=== PATIENT | female | born 1995 | race Caucasian/White ===

== ENCOUNTER 2017-01-11 | Inpatient (IN) | payer OTHER ==
[~2017-01-11] VITALS: Ht 154.9 cm; Wt 51.3 kg
[~2017-01-11] MED LIST: BACTRIM DS TABL1 TA1 PO; CIPRO PO; PYRIDIUM100 MG PO; URISPAS100 M1 PO; ZOFRAN ODT4 MG PO
--- NOTE | ~2017-01-11 | PN ---
Unit #: [id number] #: [id number] Patient: GIOVANY MAK [id number] [facility] [address] [place] [address] [id number] MR#: [id number] NAME: GIOVANY MAK ROOM: P176 Age: 21 Sex: F Admission Date: 01/11/2017 : 1995 Attending Physician: Jacob Lee M.D. Admitting Physician: Jacob Lee M.D. Primary Care Physician: [facility] PROGRESS NOTES DATE OF SERVICE: 01/13/2017 SUBJECTIVE Ms. Mak is a 21-year-old white female with mood disorder and substance abuse, who was seen today and chart was reviewed, and case was discussed with the staff. She has been anxious, withdrawn, depressed, and rather seclusive to herself. Meanwhile, she has been cooperative with treatment recommendations and has been taking the medications and tolerating them fairly well with no reported side effects. MENTAL STATUS EXAMINATION Young white female who was casually dressed with fair personal hygiene, appears to be in no acute distress or discomfort. She can awake and alert on interaction with intact orientation. Her mood was anxious with a congruent affect. Her speech was slow and restricted in content. She denies any suicidal or homicidal ideations, and also denies any auditory or visual hallucinations. Her insight and judgment remain slightly impaired. TREATMENT PLAN 1. We will continue on her current medications and treatment protocol. We will monitor her response to medications and make further adjustments as needed. 2. We will continue to follow up. Dictated by... Lydia Heath/renée TD: 01/13/2017 16:13 JOB #: [id number] Unit #: [id number] #: [id number] Patient: GIOVANY MAK PROGRESS NOTES Page 1 of 1 X Jacob Lee MD PROGRESS NOTE
--- NOTE | ~2017-01-11 | HP ---
Unit #: [id number] #: [id number] Patient: GIOVANY LOTT [id number] [place] [address] [id number] I MR#: [id number] NAME: GIOVANY LOTT ROOM: P176 Age: 21 Sex: F Admission Date: 01/11/2017 : 1995 Attending Physician: Jacob Lee M.D. Admitting Physician: Jacob Lee M.D. Primary Care Physician: [facility] HISTORY AND PHYSICAL HISTORY AND PHYSICAL COMPLETED 01/11/2017 HISTORY OF PRESENT ILLNESS Giovany is a 21-year-old female, admitted on 01/11/2017 to [facility], for detox from meth. PAST MEDICAL HISTORY None. PAST SURGICAL HISTORY None. SOCIAL HISTORY She smokes one pack of cigarettes daily, denies alcohol use, does report daily use of methamphetamines. She is currently single and lives with her son and her son's father. FAMILY HISTORY Noncontributory. REVIEW OF SYSTEMS CONSTITUTIONAL: No fever or chills. HEENT: Denies any sore throat, ear pain or runny nose. CARDIOVASCULAR: Denies chest pain, irregular heart rhythm or palpitations. CHEST: Denies shortness of breath or cough. No hemoptysis. GASTROINTESTINAL: Denies nausea, vomiting, diarrhea or chronic constipation. ENDOCRINE: Denies history of increased thirst or urination. No recent significant weight loss or gain. GENITOURINARY: Denies dysuria, frequency, or hematuria. SKIN: Denies any rashes. HEMATOLOGIC: Denies history of increased bleeding or bruising. MUSCULOSKELETAL: Denies any hot, swollen joints. No generalized muscle pain. NEUROLOGIC: Denies problems with vision or speech. No frequent, severe headaches. No numbness, tingling or weakness in any extremities. Denies loss of bladder or bowel control. CURRENT MEDICATIONS None. ALLERGIES Unit #: [id number] #: [id number] Patient: GIOVANY LOTT None. PHYSICAL EXAMINATION GENERAL: Alert, oriented, no acute distress. VITAL SIGNS: Blood pressure 111/71, heart rate 94, respirations 16, temperature 98.6. HEIGHT: 5 feet 1 inch. WEIGHT: 113 pounds. SKIN: Warm and dry without rash or lesion. HEENT: Normocephalic. TMs not viewed. Oral and nasal passages clear. Conjunctivae clear. PERRLA. EOMs intact. NECK: Supple without lymphadenopathy or thyromegaly. HEART: Regular rate and rhythm without murmur. LUNGS: Clear. ABDOMEN: Soft, nontender. : Not done. EXTREMITIES: No evidence of cyanosis, clubbing or edema. Moves all without focal deficit. NEUROLOGICAL: Grossly within normal limits. Cranial Nerves: II: Visual worthy are intact. III, IV AND : Extraocular movements are intact. Pupils are equal, round and reactive to light. V: Facial sensation is grossly normal. VII: Facial movements and expression are normal. VIII: Auditory acuity grossly intact. IX, X: Uvula is midline. Phonation is normal. XI: Patient shrugs shoulders and turns head normally. XII: Tongue protrudes in the midline. Sensory and Motor Function: Sensory and motor sensation is grossly normal. Motor: moves all extremities well. Coordination: Gait is normal. Deep Tendon Reflexes: Intact. IMPRESSION Psychiatric admission. RECOMMENDATIONS Psychiatric, per psychiatrist. MEDICAL No contraindications to participating in facility's activities. MEDICAL PROGNOSIS Good. MEDICAL CONDITION Stable. Dictated by... Remington Reyes TD: 01/12/2017 05:59 JOB #: [id number] Unit #: [id number] #: [id number] Patient: GIOVANY LOTT HISTORY AND PHYSICAL Page 1 of 1 X SUSIE MORSE APRN X HISTORY AND PHYSICAL
--- NOTE | ~2017-01-11 | CO ---
Unit #: [id number] #: [id number] Patient: GIOVANY LOTT [id number] [place] [address] [id number] MR#: [id number] NAME: GIOVANY LOTT ROOM: 76 Age: 21 Sex: F Admission Date: 01/11/2017 : 1995 Attending Physician: Jacob Lee M.D. Primary Care Physician: [facility] Consultation Date: 01/11/2017 CONSULTATION REPORT HISTORY OF PRESENT ILLNESS Giovany reports that she has a history of STDs. She was diagnosed with chlamydia and Trichomonas several months ago and believes that she has the same again. She reports yellowish green vaginal discharge with thickness and an odor. She also has had vaginal itching for the past week. No abdominal pain. No other complaints. PHYSICAL EXAMINATION CARDIAC: Regular rate and rhythm. No murmurs, gallops, or rubs. RESPIRATORY: Clear to auscultation bilaterally. ASSESSMENT AND PLAN Vaginal odor and itching. We will obtain urine for gonorrhea, chlamydia and Trichomonas. Please notify once results are available. Dictated by... Remington Reyes/renée TD: 01/12/2017 00:43 JOB #: [id number] CONSULTATION REPORT Page 1 of 1 X SUSIE MORSE APRN X CONSULTATION REPORT
--- NOTE | ~2017-01-11 | PN ---
Unit #: [id number] #: [id number] Patient: GIOVANY MAK [id number] [facility] [address] [place] [address] [id number] I MR#: [id number] NAME: GIOVANY MAK ROOM: P176 Age: 21 Sex: F Admission Date: 01/11/2017 : 1995 Attending Physician: Jacob Lee M.D. Admitting Physician: Jacob Lee M.D. Primary Care Physician: [facility] PROGRESS NOTES DATE 01/12/2017 DISCUSSION Ms. Mak is a 21-year-old white female with substance abuse and mood disorder who was seen today and chart was reviewed and case was discussed with the staff. She has been exhibiting very bizarre behavior as she is refusing to talk and today she actually was laying in the bed awake with eyes open but still would not make eye contact or answer any questions and at best, she slightly shook her head stating that she has nothing to ask and as such has been very seclusive, isolative with blunted affect and minimal interaction and poor eye contact. However, no agitation or aggression has been noted. MENTAL STATUS EXAMINATION Young white female who was casually dressed with fair personal hygiene and appears to be in no acute distress or discomfort. She was awake and alert with impaired attention and concentration. Her mood was anxious with congruent affect. Her speech is slow and restricted in content. Her thought processes were disorganized with some looseness of associations and flight of ideas. Her insight and judgement remain significantly impaired. TREATMENT PLAN 1. Will continue on current medications and treatment protocol. Will monitor her response to the medications and make further adjustments as needed. 2. Will continue to follow up. Dictated by... Lydia Heath/dianne TD: 01/12/2017 23:10 JOB #: [id number] Unit #: [id number] #: [id number] Patient: GIOVANY MAK PROGRESS NOTES Page 1 of 1 X Jacob Lee MD X PROGRESS NOTE
--- NOTE | ~2017-01-11 | CO ---
Unit #: [id number] #: [id number] Patient: GIOVANY LOTT [id number] [facility] [address] [place] [address] [id number] Felice MR#: [id number] NAME: GIOVANY LOTT ROOM: [facility] Age: 21 Sex: F Admission Date: 01/11/2017 : 1995 Attending Physician: Jacob Lee M.D. Primary Care Physician: [facility] CONSULTATION REPORT REASON FOR CONSULT Patient complaint of abnormal labs, vaginal discharge. SUBJECTIVE "I had Trichomonas and Chlamydia in April and it is the same discharge, the same foul smelling yellow greenish discharge that I had then, so I think it has recurred." OBJECTIVE Vital signs within normal limits. Noted abnormal urine with positive 3+ leuko esterase, 1+ blood which patient states she was on her period at the time, some WBCs. ASSESSMENT Likely recurrence of Chlamydia and Trichomonas. PLAN Will give azithromycin 1 gram as a single dose today and metronidazole 2 grams as a single dose today as well. Dictated by... Remington Rocha/dianne TD: 01/13/2017 17:44 JOB #: [id number] CONSULTATION REPORT Page 1 of 1 X Aminah Cabrera APR X CONSULTATION REPORT
--- NOTE | ~2017-01-11 | PN ---
Unit #: [id number] #: [id number] Patient: GIOVANY MAK [id number] [facility] [address] [place] [address] [id number] I MR#: [id number] NAME: GIOVANY MAK ROOM: 76 Age: 21 Sex: F Admission Date: 01/11/2017 : 1995 Attending Physician: Jacob Lee M.D. Admitting Physician: Jacob Lee M.D. Primary Care Physician: [facility] PROGRESS NOTES DATE January 15, 2017 DISCUSSION Ms. Mak is a 21-year-old white female, who was seen today and chart was reviewed and the case was discussed with the staff. The patient has been anxious, withdrawn, and rather seclusive to herself. Meanwhile, she has been cooperative with the treatment recommendations and has been taking the medications and tolerating them fairly well with no reported side effects. MENTAL STATUS EXAMINATION Young white female, who was casually dressed with fair personal hygiene and appears to be in no acute distress or discomfort. She was awake and alert with impaired attention and concentration. Her mood is anxious with a congruent affect. Her speech is slow and goal-directed. She denies any suicidal or homicidal ideations, and also denies any auditory or visual hallucinations. Her insight and judgment remain slightly impaired. TREATMENT PLAN 1. We will continue her on her current medications and treatment protocol, and will monitor her response to the medications, and make further adjustments as needed. 2. We will continue to followup. Dictated by... Lydia Heath/tunde TD: 01/16/2017 07:30 JOB #: [id number] Unit #: [id number] #: [id number] Patient: GIOVANY MAK [facility] PROGRESS NOTES Page 1 of 1 X Jacob Lee MD PROGRESS NOTE
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
--- NOTE | ~2017-01-11 | PN ---
Unit #: [id number] #: [id number] Patient: GIOVANY MAK [id number] [facility] [address] [place] [address] [id number] I MR#: [id number] NAME: GIOVANY MAK ROOM: 76 Age: 21 Sex: F Admission Date: 01/11/2017 : 1995 Attending Physician: Jacob Lee M.D. Admitting Physician: Jacob Lee M.D. Primary Care Physician: [facility] PROGRESS NOTES DATE 01/14/2017. DISCUSSION Ms. Mak is a 21-year-old white female who was seen today and chart reviewed. Her case was discussed with the staff. She has been anxious and withdrawn. She has not shown any agitation. She has been cooperative with treatment recommendations. She has been taking her medication and tolerating them fairly well with no reported side effects. MENTAL STATUS EXAMINATION Young white female who was casually dressed with fair personal hygiene. She appears to be in no acute distress or discomfort. The patient was awake and alert on interaction with intact orientation. Her mood was anxious with a congruent affect. The patient denies any suicidal or homicidal ideations, and also denies any auditory or visual hallucinations. Her insight and judgment remain slightly impaired. TREATMENT PLAN 1. We will continue on her current medications and treatment protocol. We will monitor her response to medications and make further adjustments as needed. 2. We will continue to follow up. Dictated by... Lydia Heath/gz TD: 01/15/2017 14:13 JOB #: [id number] Unit #: [id number] #: [id number] Patient: GIOVANY MAK [facility] PROGRESS NOTES Page 1 of 1 X Jacob Lee MD PROGRESS NOTE
--- NOTE | ~2017-01-11 | DS ---
Unit #: [id number] #: [id number] Patient: GIOVANY MAK [id number] [facility] [address] [place] [address] [id number] I MR#: [id number] NAME: GIOVANY MAK ROOM: P176 Age: 21 Sex: F Admission Date: 01/11/2017 : 1995 Discharge Date: 01/16/2017 Attending Physician: Jacob Lee M.D. Primary Care Physician: [facility] DISCHARGE SUMMARY IDENTIFYING DATA Ms. Mak is a 21-year-old single white female, who is a resident of [place], [place], and was self-referred to the hospital on a voluntary basis. DISCHARGE DIAGNOSES Psychiatric: Major depressive disorder, recurrent, moderate, without psychotic features; methamphetamine dependence, moderate; and opioid abuse, moderate. Medical: None. Stressors: Mild psychosocial stressors. HISTORY OF PRESENT ILLNESS Please see initial psychiatric evaluation for details. PAST PSYCHIATRIC HISTORY Please see initial psychiatric evaluation for details. PAST MEDICAL HISTORY Please see initial psychiatric evaluation for details. HOSPITAL COURSE The [facility] and was oriented to the hospital environment. Routine p.r.n. medications were initiated, and she was started back on her home medications and detox protocol was initiated and she was also started on Effexor as an antidepressant and was closely monitored. She was taking the medications regularly and was tolerating them fairly well and was able to show a decent and therapeutic response with improvement in depression and anxiety and was denying any suicidal ideations and was not seen to be a danger to self or anyone else and was willing to continue treatment on an outpatient basis, and as such, it was decided that she will be discharged home and will continue treatment on an outpatient basis. DISCHARGE MEDICATION Effexor XR 75 mg a day for depression. DISCHARGE CONDITION Stable. PROGNOSIS Fair. Dictated by... Unit #: [id number] #: [id number] Patient: GIOVANY MAK Lydia Heath/renée TD: 01/16/2017 19:01 JOB #: [id number] DISCHARGE SUMMARY Page 1 of 1 X Jacob Lee MD DISCHARGE SUMMARY
[2017-01-12 09:40] LABS: BASOPHIL% 0.5 % (0-2.5); EOSINOPHIL# 0.1 X10e3 (0-0.7); EOSINOPHIL% 1.4 % (0.0-7.0); HEMATOCRIT 37.8 % (35.0-45.0); HEMOGLOBIN 12.4 gm/dL (12.0-16.0); LYMPHOCYTE% 48.8 % (17.0-45.0); MEAN CELL VOLUME 91.8 FL (83-96); MEAN CORPUSCULAR HEMOGLOBIN 30.2 PG (28-34); MEAN CORPUSCULAR HGB CONC 32.8 g/dL (30-36); MONOCYTE# 0.8 X10e3 (0-1.0); MONOCYTE% 10.2 % (3.0-12.0); NEUTROPHIL# 3.2 X10e3 (1.5-7.1); NEUTROPHIL% 39.1 % (40-75); PLATELET COUNT 239 X10e3 (140-420); RED BLOOD COUNT 4.12 X10e (3.90-5.30); RED CELL DISTRIBUTION WIDTH 13.2 % (11.0-15.5); WHITE BLOOD COUNT 8.2 X10e3 (4.0-10.5)
[2017-01-12 09:54] LABS: DIFF IND NO
[2017-01-12 09:57] LABS: URINE APPEARANCE CLOUDY; URINE BILIRUBIN NEG (NEG); URINE BLOOD 1+ (NEG); URINE COLOR YELLOW; URINE GLUCOSE NORM (NORM); URINE KETONE NEG (NEG); URINE LEUKOCYTE ESTERASE 3+ (NEG); URINE NITRATE NEG (NEG); URINE PROTEIN NEG (NEG); URINE SPECIFIC GRAVITY 1.025 (1.003-1.035); URINE UROBILINOGEN NORM (NORM)
[2017-01-12 10:17] LABS: URINE BACTERIA AUWI NEG (NEGATIVE); URINE SQUAMOUS EPITHELIAL CELL FEW /[HPF]
[2017-01-12 10:18] LABS: URINE AMORPHOUS SEDIMENT AMORP URATES; URINE CRYSTALS CALCIUM OXALATE /[HPF]
[2017-01-12 10:31] LABS: ALBUMIN SERUM 3.4 g/dL (3.5-5.0); BILIRUBIN,TOTAL 0.4 mg/dL (0.2-2.0); CALCIUM SERUM 8.4 mg/dL (8.4-10.2); CREATININE SERUM 0.6 mg/dL (0.6-1.4); GLOM FILT RATE Estimated 129.4 mL/min (>60); POTASSIUM 3.8 mmol/L (3.5-5.1)
[2017-01-12 10:40] LABS: AMPHETAMINE POS (NEG); BARBITURATES NEG (NEG); BENZODIAZEPINES NEG (NEG); COCAINE NEG (NEG); MARIJUANA NEG (NEG); OPIATES POS (NEG); TRICYCLIC ANTIDEPRESSANTS NEG (NEG); U METHADONE NEG (NEG)
[2017-01-16 15:28] LABS: CHLAMYDIA TRACH Detected (Not Detected); N GONOR Not Detected (Not Detected)
== END 2017-01-16 11:05 | DRG 885 ==
LOC: P1E 04:24
PROVIDERS: Nurse Practitioner Family; Psychiatry & Neurology Psychiatry
PROC: HZ2ZZZZ Detoxification Services for Substance Abuse Treatment (ICD-10-PCS; principal; 2017-01-11)
DX: F33.1 Major depressive disorder, recurrent, moderate (principal); F15.20 Other stimulant dependence, uncomplicated; F11.10 Opioid abuse, uncomplicated; F17.210 Nicotine dependence, cigarettes, uncomplicated; A56.02 Chlamydial vulvovaginitis; A59.01 Trichomonal vulvovaginitis
CPT/HCPCS: 80053; 80307; 81003; 84703; 85025; 87491; 87591

== ENCOUNTER 2017-02-14 22:30 | Emergency (ER) | payer OTHER ==
[2017-02-14 23:07] LABS: URINE SOURCE CLEAN CATCH
[2017-02-14 23:11] LABS: URINE APPEARANCE CLOUDY; URINE BLOOD 3+ (NEG); URINE COLOR DK YELLOW; URINE GLUCOSE NEG (NEG); URINE KETONE NEG (NEG); URINE LEUKOCYTE ESTERASE 2+ (NEG); URINE NITRATE NEG (NEG); URINE PH 6.5 (5-8); URINE PROTEIN 2+ (NEG); URINE SPECIFIC GRAVITY 1.024 (1.003-1.035)
[2017-02-14 23:14] LABS: CULTURE INDICATED? YES; URBCS1 AUWI INNUM /[HPF] (0-2); URINE BACTERIA AUWI 3+ (NEGATIVE); URINE SQUAMOUS EPITHELIAL CELL OCC /[HPF]; UWBCS1 AUWI 100-200 (0-5)
[2017-02-14 23:29] LABS: URINE BILIRUBIN NEG (NEG)
[2017-02-16 21:41] LABS: CHLAMYDIA TRACH Detected (Not Detected); N GONOR Detected (Not Detected)
== END 2017-02-15 | disposition home or self-care (01) ==
LOC: CED 22:30 → CFTX 22:30 → CED 23:11 → CFTX 23:11
PROVIDERS: Nurse Practitioner
DX: N39.0 Urinary tract infection, site not specified (principal); N76.0 Acute vaginitis; F32.9 Major depressive disorder, single episode, unspecified; F17.210 Nicotine dependence, cigarettes, uncomplicated
CPT/HCPCS: 81003; 84703; 87086; 87088; 87186; 87491; 87591; 87808; 87905; 99283